=== PATIENT | female | born 1965 | race African-American/Black ===

== ENCOUNTER 2016-12-22 08:12 | Emergency (ER) | payer MEDICAID, OTHER ==
[~2016-12-22] VITALS: Ht 157.5 cm; Wt 60.0 kg
[~2016-12-22 08:12] MED LIST: AMIT-187; AMLO5TAB4; LISI-604
[2016-12-22] MEDS ORDERED: LOSA1TAB34 PO (08:28)
[2016-12-22] MEDS ORDERED: FLUORESCEIN SODIUM 1MG/STRIP RIGHTEYE ONE (08:45)
[2016-12-22] MEDS ORDERED: TETRACAINE 0.5% OPHTH DROPS 4ML RIGHTEYE ONE (08:45)
[2016-12-22] MEDS ORDERED: CLONIDINE 0.2MG TABLET PO ONE (08:45)
[2016-12-22 09:36] VITALS: BP 153/92
== END 2016-12-22 10:46 | disposition home or self-care (01) ==
LOC: ER 08:29
DX: H11.31 Conjunctival hemorrhage, right eye (principal); I10 Essential (primary) hypertension; R05 Cough
CPT/HCPCS: 99283; Z7610

== ENCOUNTER 2017-08-09 11:49 | Inpatient (IN) | payer MEDICAID ==
[2017-08-09] VITALS (33 sets, daily range): BP systolic 114–162; BP diastolic 69–101
[~2017-08-09] VITALS: Ht 157.5 cm; Wt 62.1 kg
[~2017-08-09 11:49] MED LIST changes: +LOSA1TAB34 PO
[2017-08-09] MEDS ORDERED: LABETALOL 5MG/ML SYR 20 MG/4 ML SYRINGE IV ONE (12:15)
[2017-08-09 12:33] LABS: BASOPHILS % 0.4 % (0.0-2.0); EOSINOPHILS % 0.4 % (0.0-5.0); HEMATOCRIT. 44.2 % (36.0-48.0); HEMOGLOBIN. 14.3 g/dL (12.0-16.0); LYMPHOCYTES % 26.6 % (20.0-50.0); MEAN CORPUSCULAR VOLUME 77.3 fL (81.0-99.0); MEAN PLATELET VOLUME 8.8 fl (7.4-10.4); MONOCYTES % 6.8 % (2.0-8.0); NEUTROPHILS % 65.8 % (40.0-76.0); PLATELET 224 x1000/uL (130-400); RED BLOOD CELL COUNT 5.72 mill/uL (4.2-5.4); RED CELL DISTRIBUTION WIDTH 14.3 % (11.6-14.6)
[2017-08-09] MEDS ORDERED: ONDANSETRON HCL 4MG/2ML VIAL ONE (12:33)
[2017-08-09 12:36] LABS: CHLORIDE 105 mEq/L (98-107)
[2017-08-09 12:38] LABS: INR 1.1; PARTIAL THROMBOPLASTIN TIME 26.4 sec (23.4-31.0)
[2017-08-09] MEDS ORDERED: ONDANSETRON HCL 4MG/2ML VIAL IV ONE ×2 (12:45→13:30)
[2017-08-09 12:47] LABS: CREATINE KINASE MB FRACTION 1.2 ng/mL (0.5-3.6)
[2017-08-09] MEDS ORDERED: HYDRALAZINE 20MG/ML VIAL IV ONE (13:15)
[2017-08-09] MEDS ORDERED: NICARDIPINE 50 MG in SODIUM CHLORIDE 0.9% 230 ML IV STA (13:23)
[2017-08-09] MEDS ORDERED: NICARDIPINE 50 MG in SODIUM CHLORIDE 0.9% 230 ML IV SCH (13:30)
[2017-08-09] MEDS ORDERED: PHENYTOIN SODIUM 500 MG in SODIUM CHLORIDE 0.9% 50 ML IV ONE (14:00)
[2017-08-09] MEDS ORDERED: IOHEXOL-350 100 ML BOTTLE ONE (14:07)
[2017-08-09] MEDS ORDERED: DEXT 5%/LACTATED RINGERS 1,000 ML IV SCH (15:00)
[2017-08-09] MEDS ORDERED: ONDANSETRON HCL 4MG/2ML VIAL IV PRN (15:00)
[2017-08-09] MEDS ORDERED: IPRATROPIUM/ALBUTEROL 0.5-3(2.5)MG/3ML NEB HHN PRN (16:15)
[2017-08-09] MEDS ORDERED: NICARDIPINE 100 MG in SODIUM CHLORIDE 0.9% 60 ML IV PRN (16:45)
[2017-08-09] MEDS: MORPHINE SULFATE 4 MG/ML CPJ (NOT FOR IM USE) IV PRN (17:21)
[2017-08-09 17:23] LABS: CLARITY URINE CLEAR (CLEAR); COLOR URINE YELLOW (YELLOW); KETONES URINE NEGATIVE (NEGATIVE); LEUKOCYTE ESTERASE URINE NEGATIVE (NEGATIVE); NITRITE URINE NEGATIVE (NEGATIVE); OCCULT BLOOD URINE TRACE (NEGATIVE); PH URINE 6.5 (4.5-8.0); PROTEIN URINE 2+ (NEGATIVE); SPECIFIC GRAVITY URINE 1.015 (1.005-1.030); UROBILINOGEN URINE 0.2 E.U./dL (0.2-1.0)
[2017-08-09] MEDS: NICARDIPINE 100 MG in SODIUM CHLORIDE 0.9% 60 ML IV PRN (17:30)
[2017-08-09 17:44] LABS: *AMPHETAMINES SCREEN URINE NEGATIVE (NEGATIVE); *BARBITURATES SCREEN URINE NEGATIVE (NEGATIVE); *BENZODIAZEPINES SCREEN URINE NEGATIVE (NEGATIVE); *COCAINE SCREEN URINE NEGATIVE (NEGATIVE); METHADONE URINE SCREEN NEGATIVE (NEGATIVE)
[2017-08-09 17:45] LABS: CANNABINOID URINE SCREEN PRESUMTIVE POSITIVE (NEGATIVE); OPIATES URINE SCREEN NEGATIVE (NEGATIVE); PHENCYCLIDINE URINE SCREEN NEGATIVE (NEGATIVE)
[2017-08-09] MEDS ORDERED: LEVETIRACETAM 500MG/5ML CUP PO SCH (21:00)
[2017-08-09] MEDS: LEVETIRACETAM 500 MG in SODIUM CHLORIDE 0.9% 100 ML IV SCH (21:41)
[2017-08-10] VITALS (62 sets, daily range): BP systolic 111–149; BP diastolic 50–88
[2017-08-10] MEDS: NICARDIPINE 100 MG in SODIUM CHLORIDE 0.9% 60 ML IV PRN ×3 (02:01→20:58)
[2017-08-10] MEDS: MORPHINE SULFATE 4 MG/ML CPJ (NOT FOR IM USE) IV PRN (05:08)
[2017-08-10 05:30] LABS: BASOPHILS % 0.2 % (0.0-2.0); HEMATOCRIT. 42.1 % (36.0-48.0); HEMOGLOBIN. 14.1 g/dL (12.0-16.0); LYMPHOCYTES % 11.3 % (20.0-50.0); MEAN CORPUSCULAR HEMOGLOBIN 25.3 pg (28.0-32.0); MEAN CORPUSCULAR VOLUME 75.8 fL (81.0-99.0); MONOCYTES % 8.4 % (2.0-8.0); NEUTROPHILS % 80.1 % (40.0-76.0); PLATELET 216 x1000/uL (130-400); RED BLOOD CELL COUNT 5.56 mill/uL (4.2-5.4); RED CELL DISTRIBUTION WIDTH 14.7 % (11.6-14.6)
[2017-08-10 05:39] LABS: CHLORIDE 106 mEq/L (98-107)
[2017-08-10] MEDS ORDERED: LOSARTAN POTASSIUM 50 MG TABLET PO SCH (10:00)
[2017-08-10] MEDS ORDERED: ACETAMINOPHEN 325MG TABLET PO PRN (10:00)
[2017-08-10] MEDS ORDERED: CLONIDINE 0.1MG TABLET PO PRN (10:00)
[2017-08-10] MEDS: LEVETIRACETAM 500 MG in SODIUM CHLORIDE 0.9% 100 ML IV SCH ×2 (10:51→20:58)
[2017-08-10] MEDS: BUDESONIDE 0.5MG/2ML NEB HHN SCH ×2 (13:56→20:31)
[2017-08-10] MEDS: IPRATROPIUM/ALBUTEROL 0.5-3(2.5)MG/3ML NEB HHN SCH ×2 (13:56→20:31)
[2017-08-10] MEDS: HYDROCODONE/ACETAMINOPHEN 5/325MG TABLET PO PRN (16:27)
[2017-08-10] MEDS: ATORVASTATIN CALCIUM 10MG TABLET PO SCH (20:59)
[2017-08-11] VITALS (93 sets, daily range): BP systolic 120–163; BP diastolic 68–97
[2017-08-11] MEDS: MORPHINE SULFATE 4 MG/ML CPJ (NOT FOR IM USE) IV PRN (02:01)
[2017-08-11] MEDS: IPRATROPIUM/ALBUTEROL 0.5-3(2.5)MG/3ML NEB HHN SCH ×3 (03:06→20:09)
[2017-08-11] MEDS: NICARDIPINE 100 MG in SODIUM CHLORIDE 0.9% 60 ML IV PRN ×2 (05:25→15:49)
[2017-08-11 06:06] LABS: HEMATOCRIT 42.1 % (36.0-48.0); HEMOGLOBIN 13.6 g/dL (12.0-16.0); MEAN CORPUSCULAR HEMOGLOBIN 24.8 pg (28.0-32.0); MEAN CORPUSCULAR VOLUME 76.6 fL (81.0-99.0); PLATELET 225 x1000/uL (130-400); RED CELL DISTRIBUTION WIDTH 14.7 % (11.6-14.6)
[2017-08-11 06:35] LABS: CHLORIDE 105 mEq/L (98-107)
[2017-08-11] MEDS: AMLODIPINE 5MG TABLET PO SCH ×2 (08:31→20:57)
[2017-08-11] MEDS: HYDROCHLOROTHIAZIDE 25MG TABLET PO SCH (08:32)
[2017-08-11] MEDS: LEVETIRACETAM 500MG TABLET PO SCH ×2 (08:42→20:57)
[2017-08-11] MEDS: HYDROCODONE/ACETAMINOPHEN 5/325MG TABLET PO PRN (08:43)
[2017-08-11] MEDS ORDERED: LOSARTAN POTASSIUM 50 MG TABLET PO SCH (09:00)
[2017-08-11] MEDS: BUDESONIDE 0.5MG/2ML NEB HHN SCH ×2 (10:25→20:09)
[2017-08-11] MEDS: HYDRALAZINE HCL 25MG TABLET PO SCH ×2 (13:11→22:01)
[2017-08-11] MEDS: ATORVASTATIN CALCIUM 10MG TABLET PO SCH (20:57)
[2017-08-11] MEDS: LOSARTAN POTASSIUM 50 MG TABLET PO SCH (20:57)
[2017-08-12] VITALS (96 sets, daily range): BP systolic 103–149; BP diastolic 64–95
[2017-08-12] MEDS: NICARDIPINE 100 MG in SODIUM CHLORIDE 0.9% 60 ML IV PRN (01:09)
[2017-08-12] MEDS: IPRATROPIUM/ALBUTEROL 0.5-3(2.5)MG/3ML NEB HHN SCH ×4 (02:07→20:53)
[2017-08-12 02:59] LABS: CLARITY URINE CLOUDY (CLEAR); COLOR URINE YELLOW (YELLOW); KETONES URINE NEGATIVE (NEGATIVE); LEUKOCYTE ESTERASE URINE 1+ (NEGATIVE); NITRITE URINE NEGATIVE (NEGATIVE); OCCULT BLOOD URINE TRACE (NEGATIVE); PH URINE 5.5 (4.5-8.0); PROTEIN URINE NEGATIVE (NEGATIVE); SPECIFIC GRAVITY URINE 1.011 (1.005-1.030); UROBILINOGEN URINE 0.2 E.U./dL (0.2-1.0)
[2017-08-12] MEDS: HYDRALAZINE HCL 25MG TABLET PO SCH ×3 (05:34→22:23)
[2017-08-12 05:51] LABS: BASOPHILS % 0.3 % (0.0-2.0); HEMATOCRIT. 45.4 % (36.0-48.0); HEMOGLOBIN. 14.8 g/dL (12.0-16.0); LYMPHOCYTES % 7.4 % (20.0-50.0); MEAN CORPUSCULAR HEMOGLOBIN 24.8 pg (28.0-32.0); MEAN CORPUSCULAR VOLUME 75.8 fL (81.0-99.0); MEAN PLATELET VOLUME 8.5 fl (7.4-10.4); MONOCYTES % 10.6 % (2.0-8.0); NEUTROPHILS % 81.7 % (40.0-76.0); PLATELET 234 x1000/uL (130-400); RED BLOOD CELL COUNT 5.99 mill/uL (4.2-5.4); RED CELL DISTRIBUTION WIDTH 14.6 % (11.6-14.6)
[2017-08-12 07:11] LABS: CHLORIDE 100 mEq/L (98-107)
[2017-08-12] MEDS: BUDESONIDE 0.5MG/2ML NEB HHN SCH ×2 (08:40→20:53)
[2017-08-12] MEDS: AMLODIPINE 5MG TABLET PO SCH ×2 (08:46→20:35)
[2017-08-12] MEDS: HYDROCHLOROTHIAZIDE 25MG TABLET PO SCH (08:46)
[2017-08-12] MEDS: LEVETIRACETAM 500MG TABLET PO SCH ×2 (08:46→20:35)
[2017-08-12] MEDS: LOSARTAN POTASSIUM 50 MG TABLET PO SCH ×2 (08:46→20:35)
[2017-08-12] MEDS: HYDROCODONE/ACETAMINOPHEN 5/325MG TABLET PO PRN (12:00)
[2017-08-12] MEDS: LEVOFLOXACIN 500MG PREMIX 100 ML IV SCH (12:31)
[2017-08-12] MEDS: ATORVASTATIN CALCIUM 10MG TABLET PO SCH (20:35)
[2017-08-13] VITALS (50 sets, daily range): BP systolic 108–149; BP diastolic 64–90
[2017-08-13] MEDS: IPRATROPIUM/ALBUTEROL 0.5-3(2.5)MG/3ML NEB HHN SCH ×4 (01:06→20:28)
[2017-08-13] MEDS: HYDROCODONE/ACETAMINOPHEN 5/325MG TABLET PO PRN ×2 (03:07→18:36)
[2017-08-13] MEDS: HYDRALAZINE HCL 25MG TABLET PO SCH (06:01)
[2017-08-13] MEDS: BUDESONIDE 0.5MG/2ML NEB HHN SCH (08:47)
[2017-08-13] MEDS: AMLODIPINE 5MG TABLET PO SCH ×2 (09:22→21:26)
[2017-08-13] MEDS: HYDROCHLOROTHIAZIDE 25MG TABLET PO SCH (09:22)
[2017-08-13] MEDS: LEVETIRACETAM 500MG TABLET PO SCH ×2 (09:22→21:26)
[2017-08-13] MEDS: LOSARTAN POTASSIUM 50 MG TABLET PO SCH ×2 (09:22→21:32)
[2017-08-13 10:34] LABS: BASOPHILS % 0.1 % (0.0-2.0); HEMATOCRIT. 45.9 % (36.0-48.0); HEMOGLOBIN. 14.8 g/dL (12.0-16.0); LYMPHOCYTES % 7.4 % (20.0-50.0); MEAN CORPUSCULAR HEMOGLOBIN 24.8 pg (28.0-32.0); MEAN CORPUSCULAR VOLUME 76.7 fL (81.0-99.0); MEAN PLATELET VOLUME 8.8 fl (7.4-10.4); MONOCYTES % 12.9 % (2.0-8.0); NEUTROPHILS % 79.6 % (40.0-76.0); PLATELET 233 x1000/uL (130-400); RED BLOOD CELL COUNT 5.98 mill/uL (4.2-5.4); RED CELL DISTRIBUTION WIDTH 14.9 % (11.6-14.6)
[2017-08-13 11:06] LABS: CHLORIDE 101 mEq/L (98-107)
[2017-08-13] MEDS: LEVOFLOXACIN 500MG PREMIX 100 ML IV SCH (11:33)
[2017-08-13] MEDS: HYDRALAZINE HCL 50MG TABLET PO SCH (17:36)
[2017-08-13] MEDS ORDERED: MAGNESIUM/ALUMINUM HYDROXIDE/SIMETHICONE 30ML UDC PO NR (19:00)
[2017-08-13] MEDS: MAGNESIUM/ALUMINUM HYDROXIDE/SIMETHICONE 30ML UDC PO SCH (19:40)
[2017-08-13] MEDS: METOPROLOL TARTRATE 25MG TABLET PO SCH (19:40)
[2017-08-13] MEDS: ATORVASTATIN CALCIUM 10MG TABLET PO SCH (21:26)
[2017-08-14] VITALS (46 sets, daily range): BP systolic 93–134; BP diastolic 53–90
[2017-08-14] MEDS: IPRATROPIUM/ALBUTEROL 0.5-3(2.5)MG/3ML NEB HHN SCH ×4 (01:32→20:11)
[2017-08-14 05:38] LABS: HEMATOCRIT. 45.1 % (36.0-48.0); HEMOGLOBIN. 14.7 g/dL (12.0-16.0); MEAN CORPUSCULAR HEMOGLOBIN 24.8 pg (28.0-32.0); MEAN CORPUSCULAR VOLUME 76.3 fL (81.0-99.0); MEAN PLATELET VOLUME 8.7 fl (7.4-10.4); PLATELET 291 x1000/uL (130-400); RED BLOOD CELL COUNT 5.91 mill/uL (4.2-5.4); RED CELL DISTRIBUTION WIDTH 14.7 % (11.6-14.6)
[2017-08-14 05:43] LABS: CHLORIDE 100 mEq/L (98-107)
[2017-08-14] MEDS: HYDRALAZINE HCL 50MG TABLET PO SCH ×2 (08:58→17:10)
[2017-08-14] MEDS: MAGNESIUM/ALUMINUM HYDROXIDE/SIMETHICONE 30ML UDC PO SCH ×3 (08:58→17:30)
[2017-08-14] MEDS: LEVETIRACETAM 500MG TABLET PO SCH ×2 (08:58→21:30)
[2017-08-14] MEDS: AMLODIPINE 5MG TABLET PO SCH ×2 (08:58→21:00)
[2017-08-14] MEDS: LOSARTAN POTASSIUM 50 MG TABLET PO SCH ×2 (08:58→21:00)
[2017-08-14] MEDS: METOPROLOL TARTRATE 25MG TABLET PO SCH ×2 (08:59→21:00)
[2017-08-14] MEDS: HYDROCHLOROTHIAZIDE 25MG TABLET PO SCH (08:59)
[2017-08-14] MEDS: LEVOFLOXACIN 500MG PREMIX 100 ML IV SCH (12:12)
[2017-08-14] MEDS: HYDROCODONE/ACETAMINOPHEN 5/325MG TABLET PO PRN (12:19)
[2017-08-14 12:27] LABS: PLATELET ESTIMATE NORMAL
[2017-08-14] MEDS: ATORVASTATIN CALCIUM 10MG TABLET PO SCH (21:30)
[2017-08-15] VITALS: BP 139/74
[2017-08-15] MEDS: IPRATROPIUM/ALBUTEROL 0.5-3(2.5)MG/3ML NEB HHN SCH ×2 (01:20→08:01)
[2017-08-15 04:00] VITALS: BP 117/64
[2017-08-15] MEDS: HYDROCODONE/ACETAMINOPHEN 5/325MG TABLET PO PRN (05:25)
[2017-08-15 08:00] VITALS: BP 129/76
[2017-08-15] MEDS: MAGNESIUM/ALUMINUM HYDROXIDE/SIMETHICONE 30ML UDC PO SCH ×2 (08:35→12:40)
[2017-08-15] MEDS: METOPROLOL TARTRATE 25MG TABLET PO SCH (08:35)
[2017-08-15] MEDS: AMLODIPINE 5MG TABLET PO SCH (08:36)
[2017-08-15] MEDS: LEVETIRACETAM 500MG TABLET PO SCH (08:36)
[2017-08-15] MEDS: HYDROCHLOROTHIAZIDE 25MG TABLET PO SCH (09:00)
[2017-08-15] MEDS: LOSARTAN POTASSIUM 50 MG TABLET PO SCH (09:00)
[2017-08-15] MEDS: HYDRALAZINE HCL 50MG TABLET PO SCH (09:00)
[2017-08-15] MEDS ORDERED: LACTULOSE 20G/30ML UDC PO PRN (11:00)
[2017-08-15] MEDS ORDERED: DOCUSATE SODIUM 250MG CAPSULE PO SCH (11:00)
[2017-08-15] MEDS ORDERED: BISACODYL 5MG TABLET PO SCH (11:00)
[2017-08-15 12:00] VITALS: BP 142/72
[2017-08-15 13:39] VITALS: BP 142/72
== END 2017-08-15 15:32 | disposition home or self-care (01) | DRG 720 ==
LOC: ER 11:49 → EDBEDREQSVC 13:44 → EDBEDREQ 13:44 → MICUSO 14:42 → EDBEDREQTM 14:44 → EDBEDREQ 14:44 → CANRESERV 15:18 → ENRESERV 15:18 → 8WST 08-14 23:00
PROVIDERS: ADMIT Internal Medicine; ATTEND Internal Medicine
DX: A41.9 Sepsis, unspecified organism (principal); I60.9 Nontraumatic subarachnoid hemorrhage, unspecified; G93.6 Cerebral edema; I11.0 Hypertensive heart disease with heart failure; I50.30 Unspecified diastolic (congestive) heart failure; I67.4 Hypertensive encephalopathy; E78.5 Hyperlipidemia, unspecified; I16.1 Hypertensive emergency; F12.90 Cannabis use, unspecified, uncomplicated; E87.6 Hypokalemia; R09.02 Hypoxemia; K59.00 Constipation, unspecified; N39.0 Urinary tract infection, site not specified; Z72.0 Tobacco use; Z91.14 Patient's other noncompliance with medication regimen; Z91.19 Patient's noncompliance with other medical treatment and regimen
CPT/HCPCS: 36415; 70450; 70496; 71045; 80048; 80053; 80061; 80305; 81003; 82553; 83036; 83735; 83880; 84145; 84443; 84484; 85025; 85027; 85610; 85730; 87040; 87077; 87086; 87186; 93005; 93306; 94640; 96365; 96375; 96376; 97116; 97162; 97167; 97530; 99291; G0378; J0360; J1165; J1953; J1956; J2270; J2405; J3490; J7050; J7620; J7626; Q9967

== ENCOUNTER 2018-12-20 09:14 | Emergency (ER) | payer MEDICAID ==
[~2018-12-20] VITALS: Ht 157.5 cm; Wt 68.0 kg
[~2018-12-20 09:14] MED LIST changes: -AMLO5TAB4; -LISI-604; -LOSA1TAB34 PO
[2018-12-20] MEDS ORDERED: CLONIDINE 0.1MG TABLET PO ONE ×2 (10:00→11:45)
[2018-12-20 10:38] LABS: BASOPHILS % 0.2 % (0.0-2.0); HEMATOCRIT. 42.3 % (36.0-48.0); HEMOGLOBIN. 13.7 g/dL (12.0-16.0); LYMPHOCYTES % 9.9 % (20.0-50.0); MEAN CORPUSCULAR HEMOGLOBIN 25.1 pg (28.0-32.0); MEAN CORPUSCULAR VOLUME 77.6 fL (81.0-99.0); MEAN PLATELET VOLUME 8.5 fl (7.4-10.4); MONOCYTES % 3.5 % (2.0-8.0); NEUTROPHILS % 86.4 % (40.0-76.0); PLATELET 235 x1000/uL (130-400); RED BLOOD CELL COUNT 5.44 mill/uL (4.2-5.4); RED CELL DISTRIBUTION WIDTH 14.8 % (11.6-14.6)
[2018-12-20 10:46] LABS: CHLORIDE 107 mEq/L (98-107)
[2018-12-20 10:49] LABS: ETHANOL BLOOD < 10 mg/dL
[2018-12-20 11:14] LABS: *AMPHETAMINES SCREEN URINE NEGATIVE (NEGATIVE); *BARBITURATES SCREEN URINE NEGATIVE (NEGATIVE); *BENZODIAZEPINES SCREEN URINE NEGATIVE (NEGATIVE); *COCAINE SCREEN URINE NEGATIVE (NEGATIVE)
[2018-12-20 11:15] LABS: CANNABINOID URINE SCREEN NEGATIVE (NEGATIVE); METHADONE URINE SCREEN NEGATIVE (NEGATIVE); OPIATES URINE SCREEN NEGATIVE (NEGATIVE); PHENCYCLIDINE URINE SCREEN NEGATIVE (NEGATIVE)
[2018-12-20] MEDS ORDERED: LABETALOL 5MG/ML SYR 20 MG/4 ML SYRINGE IV ONE (11:45)
[2018-12-21 20:27] LABS: CLARITY URINE CLEAR (CLEAR); COLOR URINE YELLOW (YELLOW); KETONES URINE TRACE (NEGATIVE); LEUKOCYTE ESTERASE URINE NEGATIVE (NEGATIVE); NITRITE URINE NEGATIVE (NEGATIVE); OCCULT BLOOD URINE NEGATIVE (NEGATIVE); PH URINE 5.5 (4.5-8.0); PROTEIN URINE NEGATIVE (NEGATIVE); SPECIFIC GRAVITY URINE 1.022 (1.005-1.030); UROBILINOGEN URINE 0.2 E.U./dL (0.2-1.0)
[2018-12-22] MEDS: CLONIDINE 0.1MG TABLET PO SCH ×2 (08:29→17:00)
[2018-12-22 20:02] VITALS: BP 167/98
== END 2018-12-23 01:04 ==
LOC: ER 09:14
DX: I10 Essential (primary) hypertension (principal); F32.9 Major depressive disorder, single episode, unspecified; F29 Unspecified psychosis not due to a substance or known physiological condition; F12.10 Cannabis abuse, uncomplicated
CPT/HCPCS: 36415; 70450; 71045; 80053; 80305; 80307; 80320; 80329; 81025; 85025; 93005; 96374; 99285; J3490; G0480

== ENCOUNTER 2019-03-20 11:02 | Emergency (ER) | payer MEDICAID ==
[~2019-03-20] VITALS: Ht 157.5 cm; Wt 71.3 kg
[2019-03-20 11:09] VITALS: BP 132/88
== END 2019-03-20 12:18 | disposition home or self-care (01) ==
LOC: ER 11:10
DX: B00.1 Herpesviral vesicular dermatitis (principal); I10 Essential (primary) hypertension; F12.10 Cannabis abuse, uncomplicated
CPT/HCPCS: 99283